=== PATIENT | male | born 2000 | race Caucasian/White ===

== ENCOUNTER 2020-05-26 11:33 | Emergency (ER) | payer OTHER ==
--- NOTE | 2020-05-26 12:19 | CR ---
Left hand: 4 views left hand were obtained. Comparison: No previous hand study. No fracture, dislocation or other bony abnormality is appreciated. Small cyst is noted within the first metacarpal believed to be benign. Impression: 1. Finding as noted above. 2. Nothing acute is seen. Diagnostic code #2 This report was dictated in MDT
--- NOTE | 2020-05-26 12:22 | EDM.PDOC ---
ED [facility] GENERAL MEDICAL PROBLEM - General Chief Complaint: Upper Extremity Injury/Pain Stated Complaint: LT WRIST INJURY Time Seen by Provider: 05/26/20 11:43 Source of Information: Reports: Patient History Limitations: Reports: No Limitations - History of Present Illness INITIAL COMMENTS - FREE TEXT/NARRATIVE: Patient is a 19-year-old male who presents to the emergency department with complaints of pain to his left hand and wrist. He was partaking in a training exercise with the [employer]. They were breaching a door and his hand hit the door instead of the LAURY. He complains of pain proximal to the left second and third MCP joints. He also has some mild pain with movement of his left wrist. Denies any previous injury to this extremity. Left Wrist Pain Score (Numeric/FACES): 4 - Related Data Allergies Allergy/AdvReac Type Severity Reaction Status Date / Time No Known Allergies Allergy Verified 05/26/20 11:47 Past Medical History HEENT History: Reports: None Cardiovascular History: Reports: None Gastrointestinal History: Reports: None Genitourinary History: Reports: None Musculoskeletal History: Reports: None Neurological History: Reports: None Endocrine/Metabolic History: Reports: None Hematologic History: Reports: None Immunologic History: Reports: None Dermatologic History: Reports: None Social & Family History - Tobacco Use Smoking Status *Q: Never Smoker - Caffeine Use Caffeine Use: Reports: Coffee, Energy Drinks, Soda, Tea Review of Systems - Review of Systems Review Of Systems: Comprehensive ROS is negative, except as noted in HPI. ED EXAM, GENERAL - Physical Exam Exam: See Below Exam Limited By: No Limitations General Appearance: Alert, WD/WN, No Apparent Distress Respiratory/Chest: No Respiratory Distress, Lungs Clear, Normal Breath Sounds, No Accessory Muscle Use, Chest Non-Tender Cardiovascular: Normal Peripheral Pulses, Regular Rate, Rhythm, No Edema, No Gallop, No JVD, No Murmur, No Rub Extremities: Other (Tenderness and mild swelling proximal to the second and third MCP joints. No obvious deformity. No tenderness to palpation of the left wrist.) Neurological: Alert, Oriented, CN II-XII Intact, Normal Cognition, Normal Gait, Normal Reflexes, No Motor/Sensory Deficits Psychiatric: Normal Affect, Normal Mood Skin Exam: Warm, Dry, Intact, Normal Color, No Rash Course - Vital Signs Last Recorded V/S: Last Vital Signs Temp 97.8 F 05/26/20 11:44 Pulse 70 08/23/20 11:44 Resp 20 05/26/20 11:44 BP 139/69 05/26/20 11:44 Pulse Ox 98 05/26/20 11:44 - Orders/Labs/Meds Orders: Active Orders 24 hr Category Date Time Status Hand Comp Min 3V Lt [CR] Stat Exams 05/26/20 11:48 Taken - Re-Assessments/Exams Free Text/Narrative Re-Assessment/Exam: 05/26/20 12:20 X-ray was negative for any acute fractures. Discussed that he is likely has a contusion of his left hand. Mukesh wrap was applied for comfort. Recommend ice and elevation for the next few days. Discharge instructions as documented. Departure - Departure Time of Disposition: 12:20 Disposition: Home, Self-Care 01 Condition: Good Clinical Impression: Contusion of hand, left Qualifiers: Encounter type: initial encounter Qualified Code(s): S60.222A - Contusion of left hand, initial encounter - Discharge Information *PRESCRIPTION DRUG MONITORING PROGRAM REVIEWED*: No *COPY OF PRESCRIPTION DRUG MONITORING REPORT IN PATIENT [place]: No Instructions: Hand Contusion, [id number] Referrals: PCP,None [Primary Care Provider] - Additional Instructions: You were seen in the emergency department today for pain to your left hand and wrist after your hand hit a door while trying to breech it during a training exercise. X-rays were completed and showed no fracture. You have a contusion of the soft tissue in your hand. An Mukesh wrap has been applied to your left hand. Wear this as needed for comfort for the next few days. He may ice and elevate the extremity when at rest. You may use [id number] Tylenol or ibuprofen as needed for discomfort. Activity should be as tolerated. If an action causes pain, avoid doing it. Return to ER for any worsening symptoms. Sepsis Event Note (ED) - Evaluation Sepsis Screening Result: No Definite Risk - Focused Exam Vital Signs: Vital Signs Temp Pulse Resp BP Pulse Ox 05/26/20 11:44 97.8 F 70 20 139/69 98 - My Orders Last 24 Hours: My Active Orders 05/26/20 11:48 Hand Comp Min 3V Lt [CR] Stat - Assessment/Plan Last 24 Hours: My Active Orders 05/26/20 11:48 Hand Comp Min 3V Lt [CR] Stat
== END 2020-05-26 12:27 | disposition home or self-care (01) ==
LOC: JD.ED 11:33
DX: S60.222A Contusion of left hand, initial encounter (principal); W22.8XXA Striking against or struck by other objects, initial encounter
CPT/HCPCS: 73130-26-LT; 73130-LT; 99282; 99283-25